=== PATIENT | male | born 1960 | race Caucasian/White ===

== ENCOUNTER 2017-10-28 06:13 | Day surgery (SDC) | payer OTHER ==
[2017-10-28] MEDS ORDERED: PROPOFOL 60 ML (07:32)
== END 2017-10-28 11:21 | disposition home or self-care (01) ==
LOC: GIL 06:13
DX: Z12.11 Encounter for screening for malignant neoplasm of colon (principal); D12.6 Benign neoplasm of colon, unspecified; K57.90 Diverticulosis of intestine, part unspecified, without perforation or abscess without bleeding; K64.8 Other hemorrhoids; E11.9 Type 2 diabetes mellitus without complications; I10 Essential (primary) hypertension
CPT/HCPCS: 45380; 82962; 88305

== ENCOUNTER 2018-01-13 14:04 | Day surgery (SDC) | payer OTHER ==
[2018-01-13] MEDS ORDERED: LACTATED RINGER'S 1,000 ML IV (15:30)
[2018-01-13] MEDS ORDERED: PROPOFOL 20 ML (16:22)
[2018-01-13] MEDS ORDERED: FENTAnyl 50 MCG/ML VIAL (16:22)
[2018-01-13] MEDS ORDERED: MIDAZOLAM 1 MG/ML 2 ML INJ (16:22)
[2018-01-13] MEDS ORDERED: ROCURONIUM 50 MG INJ (16:22)
[2018-01-13] MEDS ORDERED: LIDOCAINE 2% (SDV) 5 ML INJ (16:22)
[2018-01-13] MEDS ORDERED: COCAINE 4% 4 ML TOP (16:25)
[2018-01-13] MEDS ORDERED: LIDOCAINE 1%/EPI 30 ML INJ (16:25)
[2018-01-13] MEDS ORDERED: BACITRACIN/POLYMYXIN 28.35 GM OINT TOP (16:26)
[2018-01-13] MEDS ORDERED: HYDROmorphONE 1 MG/5 ML IV SYRINGE IV (16:30)
[2018-01-13] MEDS ORDERED: ONDANSETRON 4 MG INJ IV (16:30)
[2018-01-13] MEDS ORDERED: hydrALAzine 20 MG INJ IV (16:30)
[2018-01-13] MEDS ORDERED: DIPHENHYDRAMINE 50 MG INJ IV (16:30)
[2018-01-13] MEDS ORDERED: LABETALOL HCL 20MG INJ IV (16:30)
[2018-01-13] MEDS ORDERED: MEPERIDINE 25 MG INJ IV (16:30)
[2018-01-13] MEDS ORDERED: DEXAMETHASONE 4 MG/ML 1 ML INJ (16:53)
[2018-01-13] MEDS ORDERED: ONDANSETRON 4 MG INJ (16:53)
[2018-01-13] MEDS ORDERED: CEFAZOLIN 1 GM INJ (16:54)
[2018-01-13] MEDS ORDERED: SUGAMMADEX SODIUM 200 MG/2 ML VIAL IV (17:12)
[2018-01-13] MEDS ORDERED: HYDROCODONE/APAP (5/325) TAB PO (17:30)
[2018-01-13] MEDS: METOCLOPRAMIDE 10 MG INJ IV (17:36)
[2018-01-13] MEDS: HYDROmorphONE 1 MG/5 ML IV SYRINGE IV (17:37)
== END 2018-01-13 18:30 | disposition home or self-care (01) ==
LOC: SDS 14:04
DX: J34.2 Deviated nasal septum (principal); J34.89 Other specified disorders of nose and nasal sinuses; J34.3 Hypertrophy of nasal turbinates; E11.9 Type 2 diabetes mellitus without complications
CPT/HCPCS: 30140; 82962

== ENCOUNTER 2018-01-14 23:07 | Emergency (ER) | payer OTHER ==
[2018-01-15] MEDS: SOD CHLORIDE 0.9% 500 ML IV (01:48)
[2018-01-15] MEDS: morphine 4 MG/ML VIAL IV (01:48)
[2018-01-15] MEDS: ONDANSETRON 4 MG INJ IV (01:48)
[2018-01-15 02:02] LABS: ADD MAN DIFF? NO
[2018-01-15 02:05] LABS: WHITE BLOOD COUNT 9.4 10^3/ul (4.8-10.8)
[2018-01-15 02:05] LABS: BASOPHILS % 0.4 % (0.0-2.0); EOSINOPHILS # 0.1 10^3/ul (0.0-0.5); EOSINOPHILS % 1.1 % (0.0-7.0); HEMATOCRIT 44.5 % (42.0-52.0); HEMOGLOBIN 14.9 g/dl (14.0-18.0); LYMPHOCYTES # 2.3 10^3/ul (0.8-2.9); LYMPHOCYTES % 24.6 % (15.0-51.0); MEAN CORPUSCULAR HEMOGLOBIN 30.3 pg (29.0-33.0); MEAN CORPUSCULAR HGB CONC 33.5 g/dl (32.0-37.0); MEAN CORPUSCULAR VOLUME 90.4 fl (82.0-101.0); MEAN PLATELET VOLUME 10.5 fl (7.4-10.4); MONOCYTE # 0.7 10^3/ul (0.3-0.9); MONOCYTES % 6.9 % (0.0-11.0); NEUTROPHIL # 6.3 10^3/ul (1.6-7.5); NEUTROPHILS % 66.7 % (39.0-77.0); PLATELET COUNT 171 10^3/UL (140-415); RED BLOOD COUNT 4.92 10^6/ul (4.70-6.10); RED CELL DISTRIBUTION WIDTH 12.7 % (11.5-14.5)
[2018-01-15 02:25] LABS: ALANINE AMINOTRANSFERASE 22 IU/L (13-69); ALBUMIN 3.5 g/dl (3.3-4.9); ALKALINE PHOSPHATASE 66 IU/L (42-121); ANION GAP 12 (8-16); ASPARTATE AMINO TRANSFERASE 13 IU/L (15-46); BLOOD UREA NITROGEN 13 mg/dl (7-20); CALCIUM 9.2 mg/dl (8.4-10.2); CARBON DIOXIDE 31 mmol/L (21-31); CHLORIDE 102 mmol/L (97-110); CREATININE 0.87 mg/dl (0.61-1.24); LIPASE 44 U/L (23-300); POTASSIUM 3.7 mmol/L (3.5-5.1); SODIUM 141 mmol/L (135-144); TOTAL PROTEIN 6.4 g/dl (6.1-8.1)
[2018-01-15 02:30] LABS: GLUCOSE 112 mg/dl (70-220)
[2018-01-15 02:35] LABS: TROPONIN-I < 0.012 ng/ml (0.000-0.120)
[2018-01-15 03:24] LABS: ADD UMIC NO; UR ASCORBIC ACID NEGATIVE (NEGATIVE); UR BILIRUBIN (Dip) NEGATIVE (NEGATIVE); UR BLOOD (Dip) NEGATIVE (NEGATIVE); UR CLARITY CLEAR (CLEAR); UR COLOR YELLOW (YELLOW); UR GLUCOSE (Dip) NEGATIVE (NEGATIVE); UR KETONES (Dip) NEGATIVE (NEGATIVE); UR LEUKOCYTE ESTERASE (Dip) NEGATIVE Leu/ul (NEGATIVE); UR NITRITE (Dip) NEGATIVE (NEGATIVE); UR SPECIFIC GRAVITY (Dip) 1.013 (1.003-1.030); UR TOTAL PROTEIN (Dip) NEGATIVE (NEGATIVE); UR UROBILINOGEN (Dip) NEGATIVE (NEGATIVE)
== END 2018-01-15 05:50 | disposition home or self-care (01) ==
LOC: E/R 23:07
DX: R06.00 Dyspnea, unspecified (principal); R10.32 Left lower quadrant pain; I10 Essential (primary) hypertension; F17.210 Nicotine dependence, cigarettes, uncomplicated; E11.9 Type 2 diabetes mellitus without complications; Z79.82 Long term (current) use of aspirin; Z79.84 Long term (current) use of oral hypoglycemic drugs
CPT/HCPCS: 36415; 80053; 81003; 83690; 84484; 85025; 96361; 96374; 96375; 99284-25

== ENCOUNTER 2018-12-26 13:09 | Emergency (ER) | payer OTHER ==
[2018-12-26 14:40] LABS: ADD MAN DIFF? NO
[2018-12-26] MEDS: KETOROLAC 30 MG INJ IV (14:40)
[2018-12-26] MEDS: SOD CHLORIDE 0.9% 1,000 ML IV (14:40)
[2018-12-26 14:45] LABS: BASOPHILS % 0.6 % (0.0-2.0); EOSINOPHILS # 0.1 10^3/ul (0.0-0.5); EOSINOPHILS % 2.4 % (0.0-7.0); HEMATOCRIT 45.7 % (42.0-52.0); HEMOGLOBIN 15.1 g/dl (14.0-18.0); LYMPHOCYTES # 1.4 10^3/ul (0.8-2.9); LYMPHOCYTES % 25.1 % (15.0-51.0); MEAN CORPUSCULAR HEMOGLOBIN 30.3 pg (29.0-33.0); MEAN CORPUSCULAR VOLUME 91.8 fl (82.0-101.0); MEAN PLATELET VOLUME 10.3 fl (7.4-10.4); MONOCYTE # 0.6 10^3/ul (0.3-0.9); MONOCYTES % 11.8 % (0.0-11.0); NEUTROPHIL # 3.2 10^3/ul (1.6-7.5); NEUTROPHILS % 59.7 % (39.0-77.0); PLATELET COUNT 152 10^3/UL (140-415); RED BLOOD COUNT 4.98 10^6/ul (4.70-6.10); RED CELL DISTRIBUTION WIDTH 12.7 % (11.5-14.5)
[2018-12-26 14:45] LABS: WHITE BLOOD COUNT 5.4 10^3/ul (4.8-10.8)
[2018-12-26 14:59] LABS: ALANINE AMINOTRANSFERASE 31 IU/L (13-69); ALBUMIN 3.8 g/dl (3.3-4.9); ALBUMIN/GLOBULIN RATIO 1.26; ALKALINE PHOSPHATASE 76 IU/L (42-121); ANION GAP 5 (5-13); ASPARTATE AMINO TRANSFERASE 17 IU/L (15-46); BILIRUBIN,INDIRECT 1.2 mg/dl (0-1.1); BILIRUBIN,TOTAL 1.2 mg/dl (0.2-1.3); BLOOD UREA NITROGEN 12 mg/dl (7-20); CALCIUM 8.8 mg/dl (8.4-10.2); CARBON DIOXIDE 27 mmol/L (21-31); CHLORIDE 104 mmol/L (97-110); CREATININE 0.85 mg/dl (0.61-1.24); Estimated GFR > 60 mL/min (>60); GLUCOSE 100 mg/dl (70-220); LIPASE 45 U/L (23-300); POTASSIUM 4.1 mmol/L (3.5-5.1); SODIUM 136 mmol/L (135-144); TOTAL PROTEIN 6.8 g/dl (6.1-8.1)
[2018-12-26 15:14] LABS: ADD UMIC NO; UR ASCORBIC ACID 40 mg/dL (NEGATIVE); UR BILIRUBIN (Dip) NEGATIVE (NEGATIVE); UR BLOOD (Dip) NEGATIVE (NEGATIVE); UR CLARITY CLEAR (CLEAR); UR COLOR YELLOW (YELLOW); UR GLUCOSE (Dip) NEGATIVE (NEGATIVE); UR KETONES (Dip) NEGATIVE (NEGATIVE); UR LEUKOCYTE ESTERASE (Dip) NEGATIVE Leu/ul (NEGATIVE); UR NITRITE (Dip) NEGATIVE (NEGATIVE); UR SPECIFIC GRAVITY (Dip) 1.017 (1.003-1.030); UR TOTAL PROTEIN (Dip) NEGATIVE (NEGATIVE); UR UROBILINOGEN (Dip) NEGATIVE (NEGATIVE)
== END 2018-12-26 15:38 | disposition home or self-care (01) ==
LOC: E/R 13:09
DX: S39.011A Strain of muscle, fascia and tendon of abdomen, initial encounter (principal); S40.011A Contusion of right shoulder, initial encounter; S46.011A Strain of muscle(s) and tendon(s) of the rotator cuff of right shoulder, initial encounter; I10 Essential (primary) hypertension; F17.210 Nicotine dependence, cigarettes, uncomplicated; W18.30XA Fall on same level, unspecified, initial encounter; Z79.82 Long term (current) use of aspirin; Z79.84 Long term (current) use of oral hypoglycemic drugs
CPT/HCPCS: 36415; 73030-RT; 74176; 80053; 81003; 83690; 85025; 96361; 96374; 99285-25